=== PATIENT | male | born 1995 | race Caucasian/White ===

== ENCOUNTER 2019-09-26 04:13 | Inpatient (IN) | payer OTHER ==
[2019-09-26 06:47] VITALS: BMI 33.7
[2019-09-26] MEDS ORDERED: Ondansetron ODT 4 MG TAB SL PRN (06:51)
[2019-09-26] MEDS ORDERED: Ondansetron PF 4 MG/2 ML Vial IVP PRN ×3 (06:51→06:54)
[2019-09-26] MEDS ORDERED: HYDROcodone/Acetaminophen 5/325 mg Tablet PO PRN ×3 (06:51→06:52)
[2019-09-26] MEDS ORDERED: Acetaminophen 325 MG TAB PO PRN (06:52)
[2019-09-26] MEDS ORDERED: cloNIDine 0.1 MG TAB PO PRN (06:52)
[2019-09-26] MEDS ORDERED: Promethazine HCl 12.5 MG in Sodium Chloride 0.9% 50 ML IVPB PRN (06:52)
[2019-09-26] MEDS ORDERED: diphenhydrAMINE 50 MG/ML VIAL IVP PRN (06:53)
[2019-09-26] MEDS ORDERED: Morphine 4 MG/ML VIAL SLOW IVP PRN (06:53)
[2019-09-26] MEDS ORDERED: Acetaminophen 500 MG TAB PO PRN (06:54)
--- NOTE | 2019-09-26 06:56 | PDOC.HHP ---
Hospitalist HPI - History of Present Illness Snake bite History of Present Illness: patient is a 23 year old male transferred from [place] for snake bite to [facility] last night 11pm, patient reports no significant PMH, the puncture wound is visible. demarkated to ~15cm this AM at 3am and has not expanded. no color change of skin beyond puncture. given crofab before transfer. coags in [place] appear normal. Hospitalist ROS - Review of Systems Constitutional: denies: fever, chills, sweats, weakness, malaise, other Eyes: denies: pain, vision change, conjunctivae inflammation, eyelid inflammation, redness, other ENT: denies: ear pain, ear discharge, nose pain, nose discharge, nose congestion , mouth pain, mouth swelling, throat pain, throat swelling, other Respiratory: denies: cough, dry, shortness of breath, hemoptysis, SOB with excertion, pleuritic pain, sputum, wheezing, other Cardiovascular: denies: chest pain, palpitations, orthopnea, paroxysmal noc. dyspnea, edema, light headedness, other Gastrointestinal: denies: nausea, vomiting, abdominal pain, diarrhea, constipation, melena, hematochezia, other Genitourinary: denies: dysuria, frequency, incontinence, hematuria, retention, other Musculoskeletal: denies: neck pain, shoulder pain, arm pain, back pain, hand pain, leg pain, foot pain, other Skin: denies: rash, lesions, nikita, bruising, other Neurological: denies: weakness, numbness, incoordination, change in speech, confusion, seizures, other All other systems reviewed; all pertinent +/- noted in HPI/Subj Hospitalist History - Past Medical History Other Medical History: bladder reflux as child - Past Surgical History Other Surgical History: bladder surgery as child - Family History Family History: reports: no pertinent history - Social History Smoking Status: Never smoker Alcohol: reports: None Drugs: reports: none - Exam General Appearance: NAD, awake alert Eye: PERRL, anicteric sclera ENT: normocephalic atraumatic, no oropharyngeal lesions, moist mucosa Neck: supple, symmetric, no JVD, no thyromegaly, no lymphadenopathy, no carotid bruit Heart: RRR, no murmur, no gallops, no rubs, normal peripheral pulses Respiratory: CTAB, no wheezes, no rales, no ronchi, normal chest expansion, no tachypnea, normal percussion Gastrointestinal: soft, non-tender, non-distended, normal bowel sounds, no palpable masses, no hepatomegaly, no splenomegaly, no bruit Extremities: no cyanosis, no clubbing, no edema Extremities - other findings: LLE with puncture wound and demarkated minor swelling ~15cm on ankle Skin: normal turgor, no lesions, no rashes Neurological: cranial nerve grossly intact, normal sensation to touch, no weakness, no focal deficits, no new deficit Musculoskeletal: normal tone, normal strength, no muscle wasting Psychiatric: normal affect, normal behavior, A&O x 3 Hospitalist Results - Labs Additional comment: reviewed, see Hospitalist H&P A/P - Plan Plan: # presumed copperhead snake bite - patient with puncture wound and edema to 15-20cm around the bite, no significant coagulopathy, no necrosis or other danger signs, will continue to monitor closely and consult orthopedics and handoff to partner to check per protocol. - medications per protocol to be faxed to pharmacy, defer further crofab for the moment.
[2019-09-26] MEDS ORDERED: Senokot 8.6 MG TAB PO PRN (08:08)
[2019-09-26] MEDS ORDERED: Polyethylene Glycol 3350 17 GM Packet PO PRN (08:08)
[2019-09-26] MEDS ORDERED: Boostrix 0.5 ML VIAL IM ONE (08:12)
[2019-09-26] MEDS ORDERED: Enoxaparin Sodium 40 MG/0.4 ML SYRINGE SC SCH (09:00)
[2019-09-26] MEDS: diphenhydrAMINE 25 MG CAP PO SCH ×3 (09:51→20:17)
--- NOTE | 2019-09-26 10:17 | RAD ---
LEFT ANKLE THREE VIEWS: HISTORY: Snake bite. FINDINGS: Mild soft tissue swelling at the ankle. No osseous abnormality. IMPRESSION: No acute osseous abnormality. POS: AGW
--- NOTE | 2019-09-26 10:19 | CON ---
DATE OF CONSULTATION: We were asked by [facility] to see the patient. The patient is a healthy young man who sustained a snake bite to his left lower extremity. 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 He does have obvious snake bites. It has been circled with a pen as was his swelling and erythema, but looking at his foot right now, it is much better. He has some pain in that left lower extremity, but it is tolerable. Past medical history, surgical history, family history, medications, allergies can all be gleaned from the hospitalist note. ASSESSMENT: Snake bite. The patient feels it was a copperhead. PLAN: Again, his redness, swelling are down from where the pin baer were initially outlined. He definitely has no compartment syndrome like pain. He is able to move that left lower extremity well. Sensations are intact as are pulses bilaterally. He has some edema, but again it is improving. Job ID: [id number]
[2019-09-26] MEDS: Acetaminophen 650 MG Suppository PR SCH (20:17)
[2019-09-27 05:36] LABS: #Basophils 0.1 thou/uL (0.0-0.2); #Eosinphils 0.2 thou/uL (0.0-0.7); #Lymphocytes 2.3 thou/uL (1.20-3.40); #Monocytes 0.4 thou/uL (0.11-0.59); #Neutrophils 2.5 thou/uL (1.40-6.50); %Basophils 1.4 % (0.0-1.0); %Lymphocytes 40.9 % (21.0-51.0); %Monocytes 7.9 % (0.0-10.0); %Neutrophils 45.9 % (42.0-75.0); Hemoglobin 14.3 g/dL (14.0-18.0); Mean Corpuscular HGB CONC 32.8 g/dL (32.0-36.0); Mean Corpuscular Volume 94.5 fL (78.0-98.0); Mean Platelet Volume 9.8 fL (7.4-10.4); Platelet Count 165 thou/uL (130-400); RBC Distribution Width 13.1 % (11.5-14.5); Red Blood Cell (RBC) Count 4.61 mill/uL (4.70-6.10); White Blood Cell (WBC) Count 5.5 thou/uL (4.8-10.8)
[2019-09-27 05:41] LABS: PTT 26.9 sec (22.9-36.1); Prothrombin Time 13.5 sec (12.0-14.7)
[2019-09-27 05:57] LABS: ALT (SGPT) 44 U/L (8-55); AST (SGOT) 25 U/L (5-34); Albumin 3.7 g/dL (3.5-5.0); Alkaline Phosphatase 65 U/L (40-110); Anion Gap 12 mmol/L (10-20); BUN (Urea Nitrogen) 7 mg/dL (8.9-20.6); Bilirubin, Total 1.7 mg/dL (0.2-1.2); Calc. Creatinine Clearance 210 mL/min (70-130); Calcium 8.8 mg/dL (7.8-10.44); Carbon Dioxide 27 mmol/L (22-29); Chloride 105 mmol/L (98-107); Estimated GFR-MDRD Greater than 90; Globulin 2.4 g/dL (2.4-3.5); Glucose 84 mg/dL (70-105); Potassium 3.7 mmol/L (3.5-5.1); Protein, Total 6.1 g/dL (6.0-8.3); Sodium 140 mmol/L (136-145)
[2019-09-27 06:55] VITALS: BP 107/51; TEMP 98.1
[2019-09-27] MEDS: Acetaminophen 650 MG Suppository PR SCH (07:57)
[2019-09-27] MEDS: diphenhydrAMINE 25 MG CAP PO SCH (08:21)
--- NOTE | 2019-09-28 12:11 | DIS ---
DATE OF ADMISSION: 09/26/2019 DATE OF DISCHARGE: 09/27/2019 DISCHARGE DISPOSITION: Home. FOLLOWUP: 1. Follow up with primary care physician at [facility] in 1 week. 2. Follow up with orthopedic surgeon as needed. 3. Comprehensive metabolic profile after 1 week is recommended. Primary care physician advised to follow. The patient was seen and examined on the day of discharge. Denies any new complaints. No chest pain, shortness of breath, or palpitations reported. Left lower extremity swelling is improving. BRIEF HOSPITAL COURSE: The patient is a 23-year-old male who presented to the emergency room with a copperhead snake bite to the left ankle. He had significant swelling and met the criteria for moderate envenomation. He was started on CroFab in the emergency room. He was monitored on the medical floor. His ankle x-ray was negative for acute findings. He was evaluated by Orthopedic Team as well. Next morning, his pain is significantly improved. The swelling is improving as well. He appears stable for discharge. He was advised to seek medical attention if he develops any new symptoms. FINAL DIAGNOSES: 1. Copperhead snake bite. 2. Moderate envenomation, status post CroFab. 3. Obesity with a BMI of 33.7. 4. Slightly abnormal LFTs with total bilirubin of 1.7. Primary care physician advised to follow. 5. The patient understands the above plan of care. Job ID: [id number]
== END 2019-09-27 14:46 | disposition home or self-care (01) | DRG 918 ==
LOC: ERS 04:13 → T4-B 06:37 → OBSVTOIN 06:37 → INTOOBSV 06:37
PROVIDERS: ADMIT Internal Medicine; ATTEND Internal Medicine
DX: T63.091A Toxic effect of venom of other snake, accidental (unintentional), initial encounter (principal); Y92.833 Campsite as the place of occurrence of the external cause; E66.9 Obesity, unspecified; Z68.33 Body mass index [BMI] 33.0-33.9, adult; R94.5 Abnormal results of liver function studies
CPT/HCPCS: 36415; 80053; 85025; 85384; 85610; 85730; 99284; Q0163